=== PATIENT | female | born 1995 | race Caucasian/White ===

== ENCOUNTER 2018-12-21 21:57 | Emergency (ER) | payer SELFPAY ==
[~2018-12-21] VITALS: Ht 154.9 cm; Wt 48.0 kg
[2018-12-22 01:25] VITALS: BP 119/76
== END 2018-12-22 01:25 | disposition home or self-care (01) | DRG 880 ==
LOC: ED 21:57
DX: F41.9 Anxiety disorder, unspecified (principal); F17.210 Nicotine dependence, cigarettes, uncomplicated